=== PATIENT | female | born 1955 | race Caucasian/White ===

== ENCOUNTER 2020-02-18 07:03 | Day surgery (SDC) | payer BC, OTHER ==
[2020-02-18] MEDS ORDERED: LIDOCAINE 2% INJ-PF (20 MG/ML) 10 ML AMPUL ONE (07:24)
[2020-02-18] MEDS ORDERED: PROPOFOL INJ 200 MG/20 ML VIAL IV ONE (07:24)
--- NOTE | 2020-02-18 09:05 | Operative Report ---
Operative Report DATE OF SURGERY: 02/18/20 Operative Report: The risk, benefits and alternatives of the procedure including the risk of bleeding, perforation requiring surgery have been explained to the patient in detail and informed consent has been obtained. The patient is placed in a left, lateral decubital position. Timeout was called. Propofol medication is administered. Rectal examination is done which did not reveal any masses, tears or fissures. An Olympus videoscope was introduced into the patient's rectum. The scope was then carefully advanced all the way to the cecum. The cecum was identified by the usual anatomical landmarks of the ileocecal valve as well as the appendiceal office. Photodocumentation is obtained. The scope was then sequentially pulled back via the various segments of the colon including the ascending colon, hepatic flexure, transverse colon, splenic flexure, descending colon and finally the rectosigmoid portions of the colon. Retroflexion maneuver is performed. The risks benefits and alternatives of the procedure explained to the patient in detail and informed consent is obtained.A GIF Olympus video scope was inserted into the patient's mouth and hypopharynx, the esophagus is identified intubated and insufflated, the scope was then advanced through the esophagus stomach and duodenum,, retroflexion maneuver is done, the esophagus stomach and first and second portions of the duodenum examined PREOPERATIVE DIAGNOSIS: Epigastric pain status post lap band in the past. Surveillance for polyp POSTOPERATIVE DIAGNOSIS: Anastomotic ulcer status post biopsy. Diverticulosis. Internal hemorrhoids. Right side colon Inflammation status post biopsy OPERATION: Colonoscopy with biopsy. EGD with biopsy SURGEON: KM CHRISTIANSON ANESTHESIA: LMAC TISSUE REMOVED OR ALTERED: As noted above. COMPLICATIONS: None. ESTIMATED BLOOD LOSS: None. INTRAOPERATIVE FINDINGS: As noted above. PROCEDURE: Patient tolerated the procedure well. No immediate postprocedure complications are noted. Patient is discharged in good condition. Discharge date 02/18/2020. Discharge diet: Regular. Discharge activity: Regular. 2 to 3-week follow-up to discuss findings. Patient is instructed to call the office or proceed to the emergency room should there be any further problems or questions. Wait on the pathology. 5-year surveillance colonoscopy.
[2020-02-18 09:57] VITALS: BP 136/62
== END 2020-02-18 09:45 | disposition home or self-care (01) ==
LOC: END 07:03
PROVIDERS: ATTEND Internal Medicine Gastroenterology
DX: Z12.11 Encounter for screening for malignant neoplasm of colon (principal); K29.50 Unspecified chronic gastritis without bleeding; K64.8 Other hemorrhoids; K57.30 Diverticulosis of large intestine without perforation or abscess without bleeding; K28.9 Gastrojejunal ulcer, unspecified as acute or chronic, without hemorrhage or perforation; K52.9 Noninfective gastroenteritis and colitis, unspecified; K21.9 Gastro-esophageal reflux disease without esophagitis; J45.909 Unspecified asthma, uncomplicated; Z79.899 Other long term (current) drug therapy; Z86.010 Personal history of colon polyps; Z98.84 Bariatric surgery status; Z90.710 Acquired absence of both cervix and uterus; Z79.51 Long term (current) use of inhaled steroids
CPT/HCPCS: 43239; 45380; 88342 ×2; 88305 ×2; 00813; J2704; J3490; 813; 99283

== ENCOUNTER 2020-03-31 06:55 | Day surgery (SDC) | payer BC ==
[2020-03-31] MEDS ORDERED: PROPOFOL INJ 200 MG/20 ML VIAL IV ONE (08:01)
--- NOTE | 2020-03-31 08:10 | Operative Report ---
Operative Report DATE OF SURGERY: 03/31/20 Operative Report: The risks benefits and alternatives of the procedure explained to the patient in detail and informed consent is obtained.A GIF Olympus video scope was inserted into the patient's mouth and hypopharynx, the esophagus is identified intubated and insufflated, the scope was then advanced through the esophagus stomach and duodenum, retroflexion maneuver is done, the esophagus stomach and first and second portions of the duodenum examined PREOPERATIVE DIAGNOSIS: Follow-up gastric pouch anastomotic ulcer POSTOPERATIVE DIAGNOSIS: Healed ulcer. 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 COMPLICATIONS: None. ESTIMATED BLOOD LOSS: None. INTRAOPERATIVE FINDINGS: As noted above. PROCEDURE: Patient tolerated the procedure well. No immediate postprocedure complications are noted. Patient is discharged in good condition. Discharge date 03/31/2020. Discharge diet: Regular. Discharge activity: Regular. 2 to 3-week follow-up to discuss findings. Patient is instructed to call the office or proceed to the emergency room should there be any further problems questions. Wait on the pathology.
[2020-03-31 08:40] VITALS: BP 136/77
== END 2020-03-31 08:39 | disposition home or self-care (01) ==
LOC: END 06:55
PROVIDERS: ATTEND Internal Medicine Gastroenterology
DX: K29.50 Unspecified chronic gastritis without bleeding (principal); Z09 Encounter for follow-up examination after completed treatment for conditions other than malignant neoplasm; Z87.11 Personal history of peptic ulcer disease; J45.909 Unspecified asthma, uncomplicated; Z68.42 Body mass index [BMI] 45.0-49.9, adult; Z79.51 Long term (current) use of inhaled steroids; Z79.899 Other long term (current) drug therapy; Z03.818 Encounter for observation for suspected exposure to other biological agents ruled out
CPT/HCPCS: 43239; 88305 ×2; U0003; J2704; C9803; 731; 87635; 88342